=== PATIENT | female | born 1990 | race Caucasian/White ===

== ENCOUNTER 2017-03-25 19:52 | Emergency (ER) | payer SELFPAY ==
[2017-03-25] MEDS ORDERED: HYDROmorphone 2 MG/ML SDV IM ONE (21:15)
[2017-03-25] MEDS ORDERED: Ondansetron 4 MG Tab.DIS PO PRN (21:16)
[2017-03-25 21:57] VITALS: BP 131/100
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
== END 2017-03-25 22:16 | disposition home or self-care (01) ==
LOC: FB.ED 19:52
DX: S93.402A Sprain of unspecified ligament of left ankle, initial encounter (principal); Z88.0 Allergy status to penicillin; Z88.8 Allergy status to other drugs, medicaments and biological substances; Z79.899 Other long term (current) drug therapy; W16.92XA Jumping or diving into unspecified water causing other injury, initial encounter
CPT/HCPCS: 73502; 73610; 73650; 96372; 99283; A9270; J1170